=== PATIENT | male | born 2000 | race African-American/Black ===

== ENCOUNTER 2021-01-21 10:31 | Outpatient (CLI) | payer OTHER, SELFPAY | END 2021-01-21 10:32 | disposition home or self-care (01) | LOC: ANHAUDIO 10:34 | PROVIDERS: PCP Internal Medicine | DX: H69.92 Unspecified Eustachian tube disorder, left ear (principal); H90.42 Sensorineural hearing loss, unilateral, left ear, with unrestricted hearing on the contralateral side | CPT/HCPCS: 92557; 92567 ==